=== PATIENT | male | born 1970 | race Caucasian/White ===

== ENCOUNTER 2017-01-08 19:27 | Inpatient (IN) | payer BC ==
[~2017-01-08] VITALS: Ht 193 cm; Wt 120.2 kg
[2017-01-08 20:08] LABS: EOSINOPHIL COUNT 0.2 K/uL (0-0.3); HEMATOCRIT 45.8 % (38.0-50.0); IMMATURE GRANULOCYTE (%) 0.4 % (0.0-0.7); LYMPHOCYTE COUNT 3.3 K/uL (1.0-2.8); MCH 30.9 PG (29.0-34.0); MCHC 33.2 G/DL (30.0-36.0); MCV 93.1 FL (86-99); MEAN PLAT.VOLUME 8.8 uM^3 (9.0-12.4); MONOCYTE (%) 8.5 % (3-12); MONOCYTE COUNT 0.6 K/uL (0-0.8); NEUTROPHIL (%) 41.6 % (45-76); PLATELET COUNT 257 K/uL (156-360); RBC DIS.WIDTH-CV 13.7 % (11.8-14.6); RBC DIS.WIDTH-SD 47.2 % (39-53); RED BLOOD COUNT 4.92 M/uL (4.00-5.50); WHITE BLOOD COUNT 7.1 K/uL (4.1-10.2)
[2017-01-08 20:13] LABS: INTER. NORMALIZED RATIO 1.1; PROTHROMBIN TIME 11.6 SEC (10.2-12.9)
[2017-01-08 20:16] LABS: PTT 29.3 SEC (25-37)
[2017-01-08 20:20] LABS: CHLORIDE 102 mEq/L (99-109); POTASSIUM 3.5 mEq/L (3.7-5.4); SODIUM 139 mEq/L (136-147)
[2017-01-08 20:22] LABS: GLUCOSE 112 mg/dL (70-99)
[2017-01-08 20:23] LABS: ANION GAP 14 MEQ/L (2-14)
[2017-01-08 20:24] LABS: TOTAL BILIRUBIN 1.1 mg/dL (0.0-1.0)
[2017-01-08 20:25] LABS: ALKALINE PHOSPHATASE 48 IU/L (3-129)
[2017-01-08 20:26] LABS: GFR ESTIMATE (CALCULATED) > 59 mL/min/
[2017-01-08 20:27] LABS: UREA NITROGEN (BUN) 11 mg/dL (9-23)
[2017-01-08 20:32] LABS: TROP-I INTERPRETATION NEGATIVE; TROPONIN-I < 0.01 ng/mL (0.0-0.30)
[2017-01-08 22:45] VITALS: BP 120/79
[2017-01-08 23:00] VITALS: BP 120/79; BP 129/82
[2017-01-08 23:15] VITALS: BP 149/81
[2017-01-08 23:30] VITALS: BP 121/81
[2017-01-09] VITALS (27 sets, daily range): BP systolic 81–139; BP diastolic 49–84
[2017-01-09 00:12] LABS: METH RESISTANT S AUREUS PCR NEGATIVE (NEGATIVE)
[2017-01-09 00:23] LABS: PROBE CHECK PASS; SPECIMEN PROCESSING CONTROL PASS
[2017-01-09 05:45] LABS: EOSINOPHIL (%) 0.1 % (0-5); HEMATOCRIT 42.3 % (38.0-50.0); IMMATURE GRANULOCYTE (%) 0.4 % (0.0-0.7); INSTRUMENT ABS NEUTROPHIL CT 5.9 K/uL; LYMPHOCYTE COUNT 1.2 K/uL (1.0-2.8); MCH 32.2 PG (29.0-34.0); MCHC 34.5 G/DL (30.0-36.0); MCV 93.2 FL (86-99); MEAN PLAT.VOLUME 9.2 uM^3 (9.0-12.4); MONOCYTE (%) 5.8 % (3-12); MONOCYTE COUNT 0.4 K/uL (0-0.8); NEUTROPHIL (%) 77.3 % (45-76); NEUTROPHIL COUNT 5.9 K/uL (1.8-6.4); PLATELET COUNT 244 K/uL (156-360); RBC DIS.WIDTH-CV 13.9 % (11.8-14.6); RBC DIS.WIDTH-SD 47.6 % (39-53); RED BLOOD COUNT 4.54 M/uL (4.00-5.50); WHITE BLOOD COUNT 7.6 K/uL (4.1-10.2)
[2017-01-09 06:07] LABS: CREATINE KINASE 612 IU/L (1-294); TOTAL CK 612 IU/L (1-294)
[2017-01-09 06:08] LABS: ANION GAP 12 MEQ/L (2-14); CHLORIDE 103 MEQ/L (99-109); GFR ESTIMATE (CALCULATED) > 59 mL/min/; GLUCOSE 109 mg/dL (70-99); HDL CHOLESTEROL 42 MG/DL (Desirable>=40); LDL CHOLESTEROL 209 mg/dL (Desirable<100); NON-HDL CHOLESTEROL 226 mg/dL (Desirable<160); POTASSIUM 3.9 MEQ/L (3.7-5.4); SAMPLE HEMOLYSIS CHECK 0; SAMPLE ICTERIC CHECK 0; SAMPLE LIPEMIA CHECK 0; SODIUM 138 MEQ/L (136-147); TOTAL CHOLESTEROL 268 mg/dL (Desirable<200); TRIGLYCERIDES 84 MG/DL (Normal: <150); UREA NITROGEN (BUN) 9 mg/dL (9-23)
[2017-01-09 06:35] LABS: TROP-I INTERPRETATION POSITIVE; TROPONIN-I 58.81 ng/mL (0.0-0.30)
[2017-01-09 07:12] LABS: CK-MB 133.2 ng/mL (0.0-4.9)
[2017-01-09 08:16] LABS: Estimated Average Glucose 103 mg/dL (70-123); HEMOGLOBIN A1c (GLYCOHEMOGLOB) 5.2 % HGB (Below 5.7)
[2017-01-09 13:33] LABS: TROP-I INTERPRETATION POSITIVE; TROPONIN-I 52.33 ng/mL (0.0-0.30)
[2017-01-09 14:06] LABS: CK-MB 86.1 ng/mL (0.0-4.9)
[2017-01-09 14:37] LABS: CREATINE KINASE 525 IU/L (1-294); TOTAL CK 525 IU/L (1-294)
[2017-01-09 18:34] LABS: CREATINE KINASE 447 IU/L (1-294); TOTAL CK 447 IU/L (1-294)
[2017-01-09 18:42] LABS: TROP-I INTERPRETATION POSITIVE; TROPONIN-I 41.64 ng/mL (0.0-0.30)
[2017-01-09 18:43] LABS: CK-MB 77.2 ng/mL (0.0-4.9)
[2017-01-10] VITALS (13 sets, daily range): BP systolic 77–106; BP diastolic 49–71
[2017-01-10 00:57] LABS: CREATINE KINASE 417 IU/L (1-294); TOTAL CK 417 IU/L (1-294)
[2017-01-10 01:00] LABS: TROP-I INTERPRETATION POSITIVE; TROPONIN-I 33.52 ng/mL (0.0-0.30)
[2017-01-10 01:02] LABS: CK-MB 44.1 ng/mL (0.0-4.9)
[2017-01-10 08:52] LABS: ANION GAP 7 MEQ/L (2-14); CHLORIDE 105 MEQ/L (99-109); GFR ESTIMATE (CALCULATED) > 59 mL/min/; GLUCOSE 105 mg/dL (70-99); POTASSIUM 4.3 MEQ/L (3.7-5.4); SAMPLE HEMOLYSIS CHECK 0; SAMPLE ICTERIC CHECK 0; SAMPLE LIPEMIA CHECK 0; SODIUM 138 MEQ/L (136-147); UREA NITROGEN (BUN) 6 mg/dL (9-23)
[2017-01-10] MEDS ORDERED: FISH OIL 1,0001 EAC7 PO (13:07)
[2017-01-10] MEDS ORDERED: COD LIVER OIL1 EACH PO (13:07)
[2017-01-10] MEDS ORDERED: VITAMIN D2000 UNI1 PO (13:08)
[2017-01-10] MEDS ORDERED: VITAMIN K100 MCG PO (13:08)
[2017-01-10] MEDS ORDERED: SELENIUM50 MCG PO (13:09)
[2017-01-10] MEDS ORDERED: MAGNESIUM400 M1 PO (13:09)
[2017-01-10] MEDS ORDERED: CALCIUM 500 +1 EAC2 PO (13:09)
[2017-01-10] MEDS ORDERED: ZINC50 M1 PO (13:09)
[2017-01-11 00:22] VITALS: BP 105/58
[2017-01-11 04:42] VITALS: BP 110/59
[2017-01-11 06:18] LABS: INTER. NORMALIZED RATIO 1.1; PROTHROMBIN TIME 11.8 SEC (10.2-12.9)
[2017-01-11 08:09] VITALS: BP 107/62
[2017-01-11] MEDS ORDERED: ASPIR-LOW81 MG PO (11:00)
[2017-01-11] MEDS ORDERED: COREG6.25 M1 PO (11:00)
[2017-01-11] MEDS ORDERED: ATORVASTATIN CA80 MG PO (11:00)
[2017-01-11] MEDS ORDERED: NITROSTAT0.4 MG SL (11:00)
[2017-01-11] MEDS ORDERED: BRILINTA90 MG PO (11:00)
[2017-01-11] MEDS ORDERED: COUMADIN5 MG PO (11:00)
[2017-01-11] MEDS ORDERED: ENTRESTO 24 MG1 EACH PO (11:00)
[2017-01-11 13:38] VITALS: BP 101/67
== END 2017-01-11 13:50 | disposition home or self-care (01) | DRG 247 ==
LOC: EME 19:27 → CATH 20:26 → 4WEST 22:21 → 4EAST 22:21 → 2SOUTH 22:21 → 4WEST 22:41 → ENRESERV 01-10 14:59 → 4EAST 01-10 16:16 → ENPENDDIS 01-11 → 4EAST 01-11 13:50
PROVIDERS: Emergency Medicine; Internal Medicine Cardiovascular Disease
DX: I21.02 ST elevation (STEMI) myocardial infarction involving left anterior descending coronary artery (principal); I42.0 Dilated cardiomyopathy; I25.10 Atherosclerotic heart disease of native coronary artery without angina pectoris; E78.5 Hyperlipidemia, unspecified; I47.2 Ventricular tachycardia; I95.9 Hypotension, unspecified; Z82.49 Family history of ischemic heart disease and other diseases of the circulatory system
CPT/HCPCS: 71010; 80048; 80053; 80061; 82550; 82550 91; 82553; 83036; 84484; 85025; 85027; 85347; 85610; 85730; 86900; 86901; 87641; 93005; 93306; 94799; 99281; 99285; C1725; C1757; C1769; C1874; C1887; J0153; J0282; J0461; J0690; J1644; J2250; J2270; J2405; J3010; J3246; J7030

== ENCOUNTER → 2017-04-09 | Outpatient (CLI) | payer BC ==
[~2017-04-09] MED LIST: ASPIR-LOW81 MG PO; ATORVASTATIN CA80 MG PO; BRILINTA90 MG PO; CALCIUM 500 +1 EAC2 PO; COD LIVER OIL1 EACH PO; COREG6.25 M1 PO; COUMADIN5 MG PO; ENTRESTO 24 MG1 EACH PO; FISH OIL 1,0001 EAC7 PO; MAGNESIUM400 M1 PO; NITROSTAT0.4 MG SL; SELENIUM50 MCG PO; VITAMIN D2000 UNI1 PO; VITAMIN K100 MCG PO; ZINC50 M1 PO
== END | disposition home or self-care (01) ==
LOC: NUC 08:56
DX: R29.898 Other symptoms and signs involving the musculoskeletal system (principal); R93.1 Abnormal findings on diagnostic imaging of heart and coronary circulation
CPT/HCPCS: 78472; A9560